=== PATIENT | male | born 1945 | race Caucasian/White ===

== ENCOUNTER 2020-09-18 22:09 | Inpatient (IN) | payer OTHER ==
[~2020-09-18] VITALS: Ht 177.8 cm; Wt 88.5 kg
[2020-09-18 22:16] VITALS: BP 134/89
[2020-09-18] MEDS ORDERED: CHILDREN'S ASPI81 M1 PO (22:30)
[2020-09-18] MEDS ORDERED: GLIPIZIDE 10 MG10 MG PO (22:31)
[2020-09-18] MEDS ORDERED: PANTOPRAZOLE SO40 M3 PO (22:31)
[2020-09-18] MEDS ORDERED: METFORMIN HCL500 M3 PO (22:31)
[2020-09-18] MEDS ORDERED: LISINOPRIL2.5 MG PO (22:32)
[2020-09-18] MEDS ORDERED: SIMVASTATIN80 MG PO (22:32)
[2020-09-18] MEDS ORDERED: CARVEDILOL12.5 MG PO (22:32)
[2020-09-18] MEDS ORDERED: JANUVIA100 MG PO (22:32)
[2020-09-18] MEDS ORDERED: FOLIC ACID1 MG PO (22:33)
[2020-09-18] MEDS ORDERED: METHOTREXATE 22.5 M1 PO (22:33)
[2020-09-18] MEDS ORDERED: JARDIANCE10 MG PO (22:34)
[2020-09-18] MEDS ORDERED: ZZZQUIL25 M1 PO (22:34)
[2020-09-18 22:47] LABS: ABSOLUTE BASOPHILS 0.1 thou/uL (0.0-0.2); ABSOLUTE EOSINOPHILS 0.1 thou/uL (0.0-0.7); ABSOLUTE LYMPHOCYTES 1.4 thou/uL (0.8-5.3); ABSOLUTE MONOCYTES 0.7 thou/uL (0.0-1.2); ABSOLUTE NEUTROPHILS 6.1 thou/uL (1.6-8.1); EOSINOPHILS 1.6 %; HEMATOCRIT 44.5 % (42.0-52.0); HEMOGLOBIN 14.9 gm/dL (14.0-18.0); LYMPHOCYTES 16.3 %; MCH 30.9 pg (26.0-34.0); MCHC 33.4 g/dL (28.0-37.0); MCV 92.5 fL (80.0-100.0); MONOCYTES 8.2 %; MPV 10.4 fl. (7.2-11.1); NUCLEATED RBCS 0 /100WBC; PLATELET COUNT* 177 thou/uL (150-400); POLYS 72.9 %; RBC 4.81 mil/uL (4.50-6.00); RDW-CV 15.5 % (10.5-14.5); WBC 8.4 thou/uL (4.0-11.0)
[2020-09-18 23:01] LABS: APTT 27.6 Seconds (25.0-31.3); INR 1.2; PROTIME 12.5 Seconds (9.20-11.50)
[2020-09-18 23:02] LABS: CALCIUM 8.7 mg/dL (8.5-10.1); CREATININE 1.6 mg/dL (0.6-1.3); POTASSIUM 4.3 mmol/L (3.5-5.1)
[2020-09-18 23:06] LABS: ALBUMIN 3.6 g/dL (3.4-5.0); TOTAL BILIRUBIN 1.2 mg/dL (<0.1-1.0)
[2020-09-18 23:55] LABS: URINE BILIRUBIN NEGATIVE (Negative); URINE BLOOD NEGATIVE (Negative); URINE CLARITY CLEAR; URINE COLOR YELLOW; URINE GLUCOSE-RANDOM 2+ (Negative); URINE KETONES NEGATIVE (Negative); URINE LEUKOCYTES-REFLEX NEGATIVE (Negative); URINE NITRITE-REFLEX NEGATIVE (Negative); URINE PROTEIN NEGATIVE (Negative); URINE UROBILINOGEN 0.2 E.U./dl (0.2-1.0)
[2020-09-19 02:25] VITALS: BP 135/67
[2020-09-19 03:15] VITALS: BP 112/65
[2020-09-19 08:00] VITALS: BP 135/83
[2020-09-19 12:00] VITALS: BP 118/68
[2020-09-19 16:00] VITALS: BP 106/79
[2020-09-20 00:04] VITALS: BP 97/58
[2020-09-20 04:02] VITALS: BP 100/66
[2020-09-20 05:20] LABS: ALBUMIN 3.7 g/dL (3.4-5.0); MAGNESIUM 1.1 mg/dL (1.8-2.4); POTASSIUM 4.2 mmol/L (3.5-5.1); TOTAL BILIRUBIN 1.2 mg/dL (<0.1-1.0); TOTAL PROTEIN 7.4 g/dL (6.4-8.2)
[2020-09-20 05:32] LABS: HEMOGLOBIN 15.5 gm/dL (14.0-18.0); MCH 30.9 pg (26.0-34.0); MCHC 33.7 g/dL (28.0-37.0); MCV 91.7 fL (80.0-100.0); MPV 10.5 fl. (7.2-11.1); RBC 5.01 mil/uL (4.50-6.00); RDW-CV 15.3 % (10.5-14.5); WBC 6.9 thou/uL (4.0-11.0)
[2020-09-20 12:00] VITALS: BP 110/67
[2020-09-20 16:00] VITALS: BP 104/76
[2020-09-20 20:00] VITALS: BP 102/65
[2020-09-21] VITALS: BP 111/45
[2020-09-21 04:00] VITALS: BP 108/77
[2020-09-21 04:46] LABS: HEMATOCRIT 48.6 % (42.0-52.0); HEMOGLOBIN 16.1 gm/dL (14.0-18.0); MCH 30.4 pg (26.0-34.0); MCHC 33.2 g/dL (28.0-37.0); MCV 91.6 fL (80.0-100.0); MPV 10.1 fl. (7.2-11.1); RBC 5.3 mil/uL (4.50-6.00); RDW-CV 15.3 % (10.5-14.5)
[2020-09-21 04:58] LABS: ALBUMIN 3.8 g/dL (3.4-5.0); CALCIUM 9.3 mg/dL (8.5-10.1); TOTAL PROTEIN 7.7 g/dL (6.4-8.2)
[2020-09-21 07:56] VITALS: BP 105/64
[2020-09-21 12:00] VITALS: BP 109/78
--- NOTE | 2020-09-21 13:26 | 2DMMODE ---
[place] [address] 2 D/M-MODE ECHOCARDIOGRAM Name: ALBINO LEROY Room: [address] IN R#: [id number] Admission: 09/19/20 Attend Phys: Lamont Dillon Discharge: Date of : 43 Date of Service: 09/21/20 1326 Report #: [id number] THIS REPORT FOR: cc: Mariann Carney MD, Lin W. MD Holkins, John M. MD [facility] ~ APPROVED REPORT Study performed: 09/21/2020 11:01:28 EXAM: Comprehensive 2D, Doppler, and color-flow Echocardiogram Patient Location: In-Patient Room #: [facility] Status: routine BSA: 2.07 HR: 68 bpm BP: 105/64 mmHg Rhythm: NSR Other Information Study Quality: Good Indications Congestive Heart Failure 2D Dimensions IVSd: 11.22 (7-11mm) LVOT Diam: 21.83 (18-24mm) LVDd: 53.29 mm PWd: 9.07 (7-11mm) Ascending Ao: 36.75 (22-36mm) LVDs: 42.13 (25-40mm) Aortic Root: 36.51 mm Volumes Left Atrial Volume (Systole) LA ESV Index: 49.50 mL/m2 Aortic Valve AoV Peak Derrick.: 0.74 m/s AO Peak Gr.: 2.21 mmHg LVOT Max P.49 mmHg AO Mean Gr.: 1.55 mmHg LVOT Mean P.79 mmHg LVOT Max V: 0.61 m/s AO V2 VTI: 12.41 cm LVOT Mean V: 0.42 m/s BONITA (VTI): 3.00 cm2 LVOT V1 VTI: 9.93 [place] [address] 2 D/M-MODE ECHOCARDIOGRAM Name: ALBINO LEROY Room: [address] IN .R.#: [id number] Admission: 09/19/20 Attend Phys: Lamont Dillon Discharge: Date of : 43 Date of Service: 09/21/20 1326 Report #: [id number] Mitral Valve E/A Ratio: 2.68 MV Decel. Time: 161.61 ms MV E Max Derrick.: 0.87 m/s MV PHT: 46.87 ms MVA (PHT): 4.69 cm2 TDI E/Lateral E': 9.67 E/Medial E': 14.50 Medial E' Derrick.: 0.06 m/s Lateral E' Derrick.: 0.09 m/s Pulmonary Valve PV Peak Derrick.: 0.70 m/s PV Peak Gr.: 1.98 mmHg Tricuspid Valve RAP Estimate: 5.00 mmHg TR Peak Gr.: 24.58 mmHg RVSP: 29.00 mmHg PA Pressure: 29.00 mmHg Left Ventricle The left ventricle is normal size. There is normal LV segmental wall motion. There is normal left ventricular wall thickness. Left ventricular systolic function is mildly decreased. LVEF is 45-50%. Right Ventricle Right ventricle is at the upper limits of normal. The right ventricular systolic function is normal. Atria Left atrium is moderately dilated. Right atrium is mildly dilated. Aortic Valve Mild aortic valve sclerosis. Mild aortic regurgitation. There is no aortic valvular stenosis. Mitral Valve The mitral valve is normal in structure. Mild to moderate mitral regurgitation. No evidence of mitral valve stenosis. Tricuspid Valve The tricuspid valve is normal in structure. Mild tricuspid regurgitation. [place] [address] 2 D/M-MODE ECHOCARDIOGRAM Name: ALBINO LEROY Room: [address]#: [id number] Admission: 09/19/20 Attend Phys: Lamont Dillon Discharge: Date of : 43 Date of Service: 09/21/20 1326 Report #: [id number] Pulmonic Valve The pulmonary valve is normal in structure. Trace pulmonic regurgitation. Great Vessels The aortic root is normal in size. IVC is normal in size and collapses >50% with inspiration. Pericardium There is no pericardial effusion. <Conclusion> The left ventricle is normal size. There is normal left ventricular wall thickness. Left ventricular systolic function is mildly decreased. LVEF is 45-50%. Right ventricle is at the upper limits of normal. Left atrium is moderately dilated. Right atrium is mildly dilated. Mild aortic valve sclerosis. Mild aortic regurgitation. There is no aortic valvular stenosis. The mitral valve is normal in structure. Mild to moderate mitral regurgitation. The tricuspid valve is normal in structure. Mild tricuspid regurgitation. No pulmonary hypertension. IVC is normal in size and collapses >50% with inspiration. There is no pericardial effusion. There is normal LV segmental wall motion. <ELECTRONICALLY SIGNED> By: Donny Ruiz MD, FACC 09/21/20 1326 25 25 Donny Ruiz MD, FACC /INF
--- NOTE | 2020-09-21 13:46 | EKG ---
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[place] : 1945 Requested By: Antionette Lakhani Order Number: [id number] MD: Donny Ruiz Measurements Intervals [place] Rate: 93 P: 53 WY: 247 QRS: -55 QRSD: 153 T: 44 QT: 402 QTc: 501 Interpretive Statements Sinus rhythm Paired ventricular premature complexes Prolonged [place] interval Right bundle branch block Inferior infarct, old Anteroseptal infarct, age indeterminate possible No previous ECG available for comparison Electronically Signed On 09-21-2020 13:46:12 CDT by Donny Ruiz [email or web address] <ELECTRONICALLY SIGNED> By: Donny Ruiz MD, [facility] 09/21/20 1346 17 17 Donny Ruiz MD, [facility] /EPI
--- NOTE | 2020-09-21 13:52 | EKG ---
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 : 1945 Requested By: Lamont [place] Order Number: [id number] Kenna MD: Donny Ruiz Measurements Intervals [place] Rate: 99 P: AL: QRS: -51 QRSD: 160 T: 27 QT: 413 QTc: 531 Interpretive Statements 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
[2020-09-21 16:00] VITALS: BP 124/82
[2020-09-21 20:00] VITALS: BP 119/89
[2020-09-22 00:51] VITALS: BP 99/60
[2020-09-22 04:00] VITALS: BP 101/53
[2020-09-22 04:55] LABS: ALBUMIN 3.6 g/dL (3.4-5.0); CALCIUM 9.2 mg/dL (8.5-10.1); CREATININE 1.7 mg/dL (0.6-1.3); MAGNESIUM 1.7 mg/dL (1.8-2.4); POTASSIUM 4.2 mmol/L (3.5-5.1); TOTAL BILIRUBIN 0.9 mg/dL (<0.1-1.0); TOTAL PROTEIN 7.4 g/dL (6.4-8.2)
[2020-09-22 05:02] LABS: HEMATOCRIT 47.2 % (42.0-52.0); HEMOGLOBIN 15.7 gm/dL (14.0-18.0); MCH 30.5 pg (26.0-34.0); MCHC 33.3 g/dL (28.0-37.0); MCV 91.7 fL (80.0-100.0); MPV 10.7 fl. (7.2-11.1); RBC 5.14 mil/uL (4.50-6.00); RDW-CV 15.7 % (10.5-14.5)
[2020-09-22 08:53] VITALS: BP 101/53; BP 126/85
[2020-09-22] MEDS ORDERED: LASIX 20 MG TAB20 MG PO (08:53)
[2020-09-22] MEDS ORDERED: GLIPIZIDE 10 MG10 MG PO (09:25)
[2020-09-22] MEDS ORDERED: HOME MEDICATION PO (09:25)
[2020-09-22] MEDS ORDERED: LEVOFLOXACIN250 MG PO (09:25)
[2020-09-22 10:31] VITALS: BP 126/85
[2020-09-22 12:00] VITALS: BP 101/69
== END 2020-09-22 13:00 | disposition home or self-care (01) | DRG 177 ==
LOC: M.ERS 22:09 → M.2W 09-19 01:29 → M.TBA-ER 09-19 01:29 → M.2W 09-19 02:58
PROVIDERS: Internal Medicine; Personal Emergency Response Attendant; ADMIT Internal Medicine; ATTEND Internal Medicine
DX: J15.6 Pneumonia due to other Gram-negative bacteria (principal); I50.43 Acute on chronic combined systolic (congestive) and diastolic (congestive) heart failure; J91.8 Pleural effusion in other conditions classified elsewhere; N17.9 Acute kidney failure, unspecified; G47.00 Insomnia, unspecified; E78.00 Pure hypercholesterolemia, unspecified; I25.10 Atherosclerotic heart disease of native coronary artery without angina pectoris; I11.0 Hypertensive heart disease with heart failure; E78.5 Hyperlipidemia, unspecified; E83.42 Hypomagnesemia; E11.649 Type 2 diabetes mellitus with hypoglycemia without coma; Z20.822 Contact with and (suspected) exposure to COVID-19; Z95.1 Presence of aortocoronary bypass graft; Z79.84 Long term (current) use of oral hypoglycemic drugs; Z79.82 Long term (current) use of aspirin; Z79.899 Other long term (current) drug therapy

== ENCOUNTER → 2021-02-15 | Outpatient (CLI) | payer OTHER ==
[~2021-02-15] MED LIST: CARVEDILOL12.5 MG PO; CHILDREN'S ASPI81 M1 PO; FOLIC ACID1 MG PO; GLIPIZIDE 10 MG10 MG PO; HOME MEDICATION PO; JANUVIA100 MG PO; JARDIANCE10 MG PO; LASIX 20 MG TAB20 MG PO; LEVOFLOXACIN250 MG PO; LISINOPRIL2.5 MG PO; METFORMIN HCL500 M3 PO; METHOTREXATE 22.5 M1 PO; PANTOPRAZOLE SO40 M3 PO; SIMVASTATIN80 MG PO; ZZZQUIL25 M1 PO
== END ==
LOC: M.RAD 14:40
PROVIDERS: ATTEND Internal Medicine
DX: M25.531 Pain in right wrist (principal)